=== PATIENT | female | born 1985 | race Caucasian/White ===

== ENCOUNTER 2017-02-10 19:54 | Emergency (ER) | payer OTHER ==
[2017-02-10 21:02] VITALS: RESP 14; TEMP 98.2
[2017-02-10 21:30] LABS: COLOR YELLOW; LEUKOCYTE ESTERASE,URINE TRACE (NEGATIVE); NITRITE,URINE NEGATIVE (NEGATIVE)
[2017-02-10 21:38] LABS: BACTERIA 1+ /hpf (NONE SEEN); MUCUS 1+ /lpf (NONE-1+); YEAST OCCASIONAL /hpf (NONE SEEN)
--- NOTE | 2017-02-10 22:39 | EDPHY ---
H & P Time Seen by Provider: 02/10/17 21:49 HPI/ROS: This patient describes onset of vaginal bleeding during sexual intercourse last night with some spotting today. She had a normal menstrual period 1 week ago that ended 1 week prior to this. She had no antecedent vaginal symptoms prior to intercourse. She is accompanied by her boyfriend shreya and they report that there is nothing unusual about there intercourse. Usual amount of 4 play proceeded intercourse with initially her on top then him on top. No unusual positions. She had no pain during intercourse. She reported both some bright red blood and some darker blood the ran down her leg and then continued with intermittent spotting since. She felt slightly lightheaded today but admits she has some associated anxiety that may have contributed. She has no other associated symptoms. Her boyfriend drove her here by private vehicle for evaluation. ROS: Constitutional: No fevers or chills recently. HEENT: No complaints Pulmonary: No complaints GI: Mild right lower quadrant cramping discomfort 3/10 intensity. Normal bowel movements. No diarrhea. : No vaginal discharge. No dysuria. As per HPI-last menstrual. Finished Integumentary: No rash 7 point ROS is otherwise negative. Past Medical/Surgical History: 1 episode of chlamydia at age 14 treated with antibiotics with resolution of symptoms. Ectopic with bilateral salpingectomy. She still has her ovaries. She reports having normal Pap smears last 1 within the last year or 2. Social History: Monogamous with her boyfriend. Smoking Status: Former smoker Physical Exam: General Appearance: Alert, no distress. Eyes: Pupils equal and round no pallor or injection. ENT, Mouth: Mucous membranes moist. Respiratory: There are no retractions, lungs are clear to auscultation. Cardiovascular: Regular rate and rhythm. Gastrointestinal: Abdomen is soft and nontender, no masses, bowel sounds normal. Pelvic exam: External genitalia normal. Speculum exam is notable for open cervical os by 1.5 cm with mildly erythematous tissue protruding through the os with small amount of white discharge. The cervix itself appears healthy with no strawberry cervix. There is mild bleeding from the margin between the cervix and the tissue that is protruding. No cervical motion tenderness on bimanual. She has mild right cervical versus right lower quadrant tenderness without mass appreciated. Minimal left cervical tenderness. Minimal uterine tenderness. Neurological: GCS 15 Skin: Warm and dry, no rashes. Back: No CVA tenderness Psychiatric: Mood and affect normal DIFFERENTIAL DIAGNOSIS: After history and physical exam differential diagnosis was considered for uterine mass, miscarriage, UTI, ectopic highly unlikely given bilateral salpingectomy, food intolerance: Crampy pain, vaginal trauma, cervicitis or other STD. Bacterial vaginosis, Constitutional: Initial Vital Signs Temperature (C) 36.8 C 02/10/17 20:57 Heart Rate 77 02/10/17 20:57 Respiratory Rate 14 02/10/17 20:57 Blood Pressure 109/83 H 02/10/17 20:57 O2 Sat (%) 95 02/10/17 20:57 O2 Delivery Mode Room Air Allergies/Adverse Reactions: No Known Allergies Allergy (Unverified 02/10/17 20:56) Home Medications: Medication Instructions Recorded Citalopram 02/10/17 PRILOSEC 02/10/17 MDM/Departure - MDM ED Course/Re-evaluation: Given the pt's lightheadedness complaint we checked pulse blood pressure standing-both normal without lightheadedness. Urine is negative. Given exam finding of tissue or polyp protruding in cervical os, proceeded with a serum test which is pending. I discussed the case with Dr. Maricarmen Campos on-call. Plan is for the patient be discharged home with I likely cervical polyp causing post coital bleeding with plan to follow up with Dr. Hilario on Monday for a pelvic ultrasound in the [facility] office. I discussed this case with the night physician-Dr. Umanzor and if the serum test is negative the patient will proceed home without plan. If it is positive she will have an ultrasound tonight. While there is minimal discharge in bleeding, the patient's exam did not appear consistent with cervicitis. She does not have a strawberry cervix and does not have cervical motion tenderness. Given lack of fever and negative chandelier sign, I doubt PID or abscess. Doubt ectopic of given bilateral salpingectomy. Doubt appendicitis given lack of GI symptoms and minimal tenderness, no fever. - Depart Disposition: Home, Routine, Self-Care Clinical Impression: PCB (post coital bleeding), Cervical polyp Clinical Impression: (Ruled Out): Vaginal bleeding Condition: Good Additional Instructions: Diagnosis: Vaginal bleeding after intercourse 2. possible cervical polyp. Plan: Drink plenty fluids Follow up with Dr. Hilario call Monday morning to arrange-OBGYN for further evaluation as an outpatient. They will do an ultrasound in the office to further evaluate. Return emergency department if he develops significant lightheadedness, unbearable abdominal pain or significant increase in vaginal bleeding. Referrals: Le Kelley MD [Medical Doctor] - As per Instructions NONE *PRIMARY CARE P,. [Primary Care Provider] - As per Instructions Maricarmen Hilario DO [Doctor of Osteopathy] - As per Instructions
[2017-02-10 23:30] LABS: % IMMATURE GRANULYOCYTES 0.4 % (0.0-1.1); ABSOLUTE IMMATURE GRANULOCYTES 0.03 10^3/uL (0.00-0.10); ADD DIFF? NO; ADD MORPH? NO; ADD SCAN? NO; ATYPICAL LYMPHOCYTE FLAG 0 (0-99); FRAGMENT RBC FLAG 0 (0-99); HEMATOCRIT 38.4 % (38.0-47.0); HEMOGLOBIN 13.3 g/dL (12.6-16.3); LEFT SHIFT FLG 0 (0-99); LIPEMIA HEMOLYSIS FLAG 90 (0-99); MEAN CELL HEMOGLOBIN 29.4 pg (27.9-34.1); MEAN CELL HEMOGLOBIN CONCENTR. 34.6 g/dL (32.4-36.7); MEAN PLATELET VOLUME 8.7 fL (8.7-11.7); PLATELET CLUMPS FLAG 0 (0-99); PLATELET COUNT 371 10^3/uL (150-400); RED BLOOD CELL COUNT 4.52 10^6/uL (4.18-5.33); RED CELL DISTRIBUTION WIDTH 13.2 % (11.5-15.2)
[2017-02-10 23:42] LABS: ANION GAP 12 mEq/L (8-16); CALCIUM 9.6 mg/dL (8.5-10.4); CARBON DIOXIDE 23 mEq/l (22-31); CHLORIDE 105 mEq/L (97-110); CREATININE 0.6 mg/dL (0.6-1.0); GLOMERULAR FILTRATION RATE > 60; GLUCOSE 88 mg/dL (70-100); POTASSIUM 3.9 mEq/L (3.5-5.2); SODIUM 140 mEq/L (134-144)
[2017-02-11 00:16] VITALS: BP 116/68; PULSE 76; O2SAT 97
[2017-02-13 12:15] LABS: CHLAMYDIA AMPLIFICATION GENPRB NEGATIVE (NEGATIVE)
== END 2017-02-11 00:14 | disposition home or self-care (01) ==
LOC: CED 19:54
DX: N93.0 Postcoital and contact bleeding (principal); N84.1 Polyp of cervix uteri; Z87.891 Personal history of nicotine dependence
CPT/HCPCS: 80048-PO; 81003-PO; 81015-PO; 81025-PO; 84703-PO; 85025-PO

== ENCOUNTER 2017-02-16 17:27 | Emergency (ER) | payer OTHER ==
[2017-02-16 17:48] VITALS: RESP 16
--- NOTE | 2017-02-16 18:57 | EDPHY ---
H & P Time Seen by Provider: 02/16/17 18:05 HPI/ROS: This patient complains of a cough 2 days duration primarily dry hacking cough associated with subjective fevers and mild myalgias. She reports 24 hour history of associated right eye purulent drainage and redness. She notes no exacerbating factors for her symptoms except for mild improvement in aches from [id number] analgesics. She arrived here by private vehicle for evaluation of her symptoms. ROS: Constitutional as per HPI. No significant fatigue. HEENT: No nasal congestion. No sore throat. No ear pain. No vision changes. No facial swelling. The patient does not were contacts. Pulmonary: No pleuritic pain. No shortness of breath. No hemoptysis. Cardiovascular: No heart palpitations lightheadedness. No chest pain. GI: No complaints. No vomiting. Integumentary: No skin rash. 7 point ROS is otherwise negative. Past Medical/Surgical History: Seen here recently for post coital bleeding and yeast vaginosis. GERD Otherwise healthy Smoking Status: Former smoker Physical Exam: Physical Exam Vital signs are normal. General: No acute distress HEENT: Nose: Clear discharge bilaterally. No sinus tenderness to percussion. Ears: External canals and tympanic membranes are clear with no erythema or abnormal findings bilaterally. Oropharynx: No erythema or exudates. No dysphonia. No drooling or stridor. Eyes: Conjunctival injection the right eye with purulent discharge sent for culture. Lids and lashes normal. Pupils equal and react to light. Extraocular motions are intact. Neck: Supple with no meningismus. No lymphadenopathy Lungs: Minimal expiratory wheeze with no rales or rhonchi. Cardiac: Regular rate and rhythm with no murmur gallop or rub Skin: No rash or pallor. Neuro: Alert with no focal deficits noted. Initial differential diagnosis: Bacterial conjunctivitis more likely than viral given symptoms and findings, viral bronchitis, URI with cough and RAD, influenza, doubt lower respiratory infection, Constitutional: Initial Vital Signs Temperature (C) 37.1 C 02/16/17 17:44 Heart Rate 92 02/16/17 17:44 Respiratory Rate 16 02/16/17 17:44 Blood Pressure 117/83 H 02/16/17 17:44 O2 Sat (%) 95 02/16/17 17:44 O2 Delivery Mode Room Air Allergies/Adverse Reactions: No Known Allergies Allergy (Verified 02/16/17 17:39) Home Medications: Medication Instructions Recorded Citalopram 02/10/17 Albuterol Hfa Anes Only [Proair 2 puffs IH Q4 PRN #1 mdi 02/16/17 Hfa Icu (*)] MAGNESIUM [Magnesium Oxide 200 mg] 02/16/17 Omeprazole [Prilosec 20 mg] 02/16/17 Sulfacetamide 10% [Bleph-10 10%] 2 drops OP QID #1 opht.btl 02/16/17 MDM/Departure - MDM Diagnostics: Rapid influenza is negative ED Course/Re-evaluation: I counseled patient regarding bacterial conjunctivitis and viral bronchitis. - Depart Disposition: Home, Routine, Self-Care Clinical Impression: Bacterial conjunctivitis of right eye, Acute viral bronchitis Condition: Good Instructions: Acute Bronchitis (ED), Conjunctivitis (ED) Additional Instructions: Diagnoses: 1. Bacterial conjunctivitis 2. Viral bronchitis Plan: Humidifier Sulfacetamide eyedrops Albuterol inhaler if needed for cough, wheeze or shortness of breath No work for the next few days. Return for any significant worsening despite the treatment plan. Stand Alone Forms: Work Excuse Prescriptions: Albuterol Hfa Anes Only [Proair Hfa Icu (*)] 2 puffs IH Q4 PRN #1 mdi PRN Reason: Wheezing Sulfacetamide 10% [Bleph-10 10%] 2 drops OP QID #1 opht.btl Referrals: NONE *PRIMARY CARE P,. [Primary Care Provider] - As per Instructions
[2017-02-16 19:19] VITALS: BP 110/74; PULSE 90; TEMP 98.4; O2SAT 94
== END 2017-02-16 19:00 | disposition home or self-care (01) ==
LOC: CED 17:27
DX: J20.8 Acute bronchitis due to other specified organisms (principal); H10.9 Unspecified conjunctivitis; Z87.891 Personal history of nicotine dependence
CPT/HCPCS: 87400-PO

== ENCOUNTER 2017-04-17 05:43 | Day surgery (SDC) | payer OTHER ==
--- NOTE | 2017-04-13 20:45 | GHP ---
[f rep st] PREOP HISTORY AND PHYSICAL PLANNED PROCEDURE: Hysteroscopy with morcellation of endometrial tissue and polyp and a LEEP excision of the cervix. INDICATION: The patient is a 31-year-old, 1, para 0-0-1-0 who was seen in the emergency room for postcoital bleeding. The patient's last Pap smear was around 2002 after she had a miscarriage. She might have had one since that time but does not remember clearly. The patient was diagnosed with Chlamydia in 2000. She later underwent bilateral salpingectomy for pelvic inflammatory disease. The patient is not entirely clear about the details around that. The patient states her periods have been monthly since then and are heavy and clotty. The patient is not planning on having children secondary to having bilateral tubes removed. The patient presented to the emergency room complaining of postcoital bleeding, the emergency room doctor said that her cervix looked like something was coming out of it and referred her to us for evaluation. The patient had a pelvic ultrasound which showed a uterus measuring 7.7 x 4.2 x 3.6 cm with an endometrium of 1.7 cm with a hypoechoic mass on the posterior wall of the cervix with high vascularity. Normal ovaries were noted. A Pap smear was performed, which was negative. The patient did have a cervical ectropion but otherwise appeared unremarkable. We had a long discussion about the management and options with the patient. We are electing to proceed with a hysteroscopy with morcellation of suspected endometrial polyp and a LEEP excision of the cervix. If her heavy periods persist after this or there are any abnormal cells in her cervix or any causes of postcoital bleeding , she might ultimately undergo a hysterectomy, but we are going to start with this for now. PAST MEDICAL HISTORY: History of pelvic inflammatory disease and depression. MEDICATIONS: Citalopram 20 mg; magnesium 400 mg; omeprazole; and gabapentin. PAST SURGICAL HISTORY: Bilateral salpingectomy. ALLERGIES: No known drug allergies. SOCIAL HISTORY: The patient is in a long-term relationship. She denies tobacco , alcohol, or drug use. FAMILY MEDICAL HISTORY: Noncontributory. OBSTETRICS/GYNECOLOGIC HISTORY: Menarche age 10. Periods are monthly and are heavy and last 7 days or longer. She is a 1, para 0-0-1-0. She had a spontaneous . The patient does have a history of chlamydia. She denies any history of any abnormal Pap smears. REVIEW OF SYSTEMS: A 10-point review of systems is negative with the exception of the above-mentioned pertinent positives. PHYSICAL EXAMINATION: VITAL SIGNS: Stable. GENERAL APPEARANCE: Alert and oriented x3. PSYCH: She has appropriate affect. NECK: Mobile and supple. HEART: Rate is regular, regular. LUNGS: Clear to auscultation bilaterally. ABDOMEN: Soft, nondistended, nontender. EXTREMITIES: No calf tenderness or edema. PELVIC: A mobile midposition uterus with no adnexal masses. An unremarkable cervix is noted. Pelvic ultrasound is described above. ASSESSMENT AND PLAN: A 31-year-old 1, para 0-0-1-0 with postcoital bleeding and menorrhagia. She will undergo a hysteroscopy with morcellation of endometrial tissue and a loop electrosurgical excision procedure excision of the cervix, and if her bleeding persists following that, we will discuss definitive therapy with hysterectomy. /[id number]/MODL MTDD
[2017-04-17] MEDS ORDERED: LIDOCAINE 1% 2 ML INJ ID PRN (06:18)
[2017-04-17] MEDS ORDERED: LR 1,000 ML IV ONE (06:18)
[2017-04-17] MEDS ORDERED: SILVER NITRATE APPLICATOR 1 APPL TP ONE (06:51)
[2017-04-17] MEDS ORDERED: ACETIC ACID IRR SOLN 0.25% 1,000 ML BTL ONE (06:53)
[2017-04-17] MEDS ORDERED: MIDAZOLAM 2 MG/2 ML VIAL IVP ONE (07:04)
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
[2017-04-17] MEDS ORDERED: MONSELS-FERRIC SUBSULFATE 8 GM SDV TP ONE (07:11)
[2017-04-17] MEDS ORDERED: POTASSIUM IODIDE 30 ML BTL PO ONE (07:15)
[2017-04-17] MEDS ORDERED: NALOXONE HCL 0.4 MG/ML INJ IVP PRN (07:19)
[2017-04-17] MEDS ORDERED: LR 500 ML IV PRN (07:19)
[2017-04-17] MEDS ORDERED: MEPERIDINE 25 MG/ML SYR IVP PRN (07:19)
[2017-04-17] MEDS ORDERED: ACETAMINOPHEN 500 MG TAB PO PRN (07:19)
[2017-04-17] MEDS ORDERED: ONDANSETRON 4 MG/2 ML VIAL IVP PRN (07:19)
[2017-04-17] MEDS ORDERED: OXYCODONE/APAP 5/325 TAB PO PRN (07:19)
[2017-04-17] MEDS ORDERED: PROMETHAZINE HCL 25 MG/ML INJ IVP PRN (07:19)
[2017-04-17] MEDS ORDERED: fentaNYL 100 MCG/2 ML INJ ONE ×2 (07:21→08:28)
[2017-04-17] MEDS ORDERED: PROPOFOL 200 MG/20 ML VIAL ONE (07:21)
[2017-04-17] MEDS ORDERED: DEXAMETHASONE 4 MG/ML VIAL ONE ×2 (07:22)
[2017-04-17] MEDS ORDERED: LIDOCAINE 2% 5 ML SDV ONE (07:22)
[2017-04-17] MEDS ORDERED: ONDANSETRON 4 MG/2 ML VIAL ONE (07:22)
[2017-04-17] MEDS ORDERED: KETOROLAC 30 MG/1 ML SDV ONE (07:22)
--- NOTE | 2017-04-17 07:25 | PDHPUP ---
History & Physical Update H&P update statement: This history and physical update is based on an assessment of the patient which was completed after admission or registration (within 24 hours), but prior to the surgery/procedure. H&P update: H&P reviewed & patient examined, no change in patient's condition since H&P completed
[2017-04-17] MEDS: fentaNYL 100 MCG/2 ML INJ IVP PRN ×2 (08:29→08:44)
--- NOTE | 2017-04-17 08:34 | POSTANESTH ---
Post Anesthetic Evaluation Cardiovascular Status: Normal, Stable, Similar to Pre-Op Cond Respiratory Status: Normal, Stable, Similar to Pre-op Cond. Level of Consciousness/Mental Status: Can Participate in Eval, Mildly Sleepy, Arousable Pain Control: Inadeq, Add Tx Required Nausea/Vomiting Control: Adequate, Prn Tx Ordered Complications Possibly Related to Anesthesia: None Noted
--- NOTE | 2017-04-17 08:38 | POSTOPPROG ---
Post Op Note Date of Operation: 04/17/17 Surgeon: Maricarmen Hilario Anesthesiologist: venu choi Anesthesia: Other (Specify) (general bag mask) Pre-op Diagnosis: post coital bleeding, dysfunctional uterine bleeding Post-op Diagnosis: same plus prolapsed cervical polyp or fibroid Inf/Abcess present in the surg proc area at time of surgery?: No EBL: 50-100 Specimen(s): cervical polyp
[2017-04-17] MEDS ORDERED: OXYCODONE/APAP 5/325 TAB ONE (08:56)
[2017-04-17 09:04] VITALS: RESP 14; TEMP 98.2
--- NOTE | 2017-04-17 09:35 | GOP ---
[f rep st] OPERATIVE REPORT DATE OF OPERATION: 04/17/2017 SURGEON: Maricarmen Hilario DO ANESTHESIA: General with bag-mask. ANESTHESIOLOGIST: Dr. Olivo. PREOPERATIVE DIAGNOSIS: Postcoital bleeding and dysfunctional uterine bleeding. POSTOPERATIVE DIAGNOSIS: Postcoital bleeding and dysfunctional uterine bleeding , plus suspected prolapsed cervical fibroid. PROCEDURE PERFORMED: Removal of cervical polyp, LEEP excision of remaining cervix, hysteroscopy, morcellation of endometrial tissue. FINDINGS: Mobile anteverted uterus with no adnexal masses. Cervical mass protruding through the cervix. ESTIMATED BLOOD LOSS: 50 cc. INDICATIONS: The patient is a 31-year-old 1, para 0-0-1-0 who went to the emergency room for postcoital bleeding. She had not had a Pap smear in over 10 years and had complaining of postcoital bleeding. At the time of evaluation in the emergency room, the doctor noted something protruding through her cervix. She was seen in my office several weeks later and the mass is no longer protruding through her cervix. An ultrasound showed a uterus measuring 7.7 x 4.2 x 3.6 cm with an endometrium of 1.7 cm with a hypoechoic mass in the posterior wall of the cervix with high vascularity. The ovaries were unremarkable. Pap smear was obtained which was negative. Management options were reviewed with the patient. The decision was made to proceed with a hysteroscopy with morcellation of endometrial tissue and removal of any mass noted. Risks and benefits have been reviewed with the patient. DESCRIPTION OF PROCEDURE: Patient was taken to the operating room with intravenous fluids in place. She was then placed on the operating room table in the dorsal supine position with general anesthesia obtained. She was then repositioned into the dorsal lithotomy position with the legs in stirrups and prepped and draped in the normal sterile fashion. Exam under anesthesia revealed a normal anteverted uterus with no adnexal masses. A speculum was placed in the patient's vagina and the cervix was noted to have a suspected polyp or fibroid prolapsed through it. It was grasped with a tenaculum and rotated and the specimen came out of the cervix. The cervix was then dilated to allow insertion of the operative hysteroscope. The hysteroscope was introduced with fluid running. A slightly thickened endometrial cavity was noted and stalk of the cervical polyp or fibroid was visualized. The morcellator was then introduced, and a circumferential morcellation was performed. Bilateral tubal ostia were visualized. The remainder of the uterine cavity was unremarkable. The cervix remained dilated with bleeding at the base where the cervical polyp or fibroid had been. A LEEP loop was used to try to cauterize the base as well as ball cautery, and an 0 Vicryl stitch was used to attempt to whipstitch the cervical base. That in addition to Monsel's solution and cautery achieved hemostasis in the cervix. No bleeding was noted. Instruments were then removed from the patient's vagina, where she was easily awoken from anesthesia. Sponge count was correct. The patient was transported to recovery room in stable condition. HYSTEROSCOPIC FINDINGS: Slightly thickened endometrium bilateral tubal ostia visualized. /[id number]/MODL MTDD
[2017-04-17 09:58] VITALS: BP 103/66; PULSE 78; O2SAT 94
== END 2017-04-17 09:58 | disposition home or self-care (01) ==
LOC: FSGY 05:43
PROVIDERS: ATTEND Obstetrics & Gynecology
PROC: 0U5 Female Reproductive System, Destruction (ICD-10-PCS; principal; 2017-04-17 07:15)
PROC: 0U5B8ZZ Destruction of Endometrium, Via Natural or Artificial Opening Endoscopic (ICD-10-PCS; principal; 2017-04-17 07:15)
PROC: 0UBC8ZX Excision of Cervix, Via Natural or Artificial Opening Endoscopic, Diagnostic (ICD-10-PCS; principal; 2017-04-17 07:15)
DX: N93.8 Other specified abnormal uterine and vaginal bleeding (principal); N84.1 Polyp of cervix uteri
CPT/HCPCS: 57522; 58563; C1782; J1100; J1885; J2250; J2405; J2704; J3010